=== PATIENT | male | born 1985 | race Two or more races ===

== ENCOUNTER 2022-09-26 17:33 | Inpatient (IN) | payer OTHER ==
[2022-09-26 18:16] VITALS: BMI 24.0
[2022-09-26] MEDS ORDERED: DICYCLOMINE HCL 10 MG CAPSULE PO PRN (19:23)
[2022-09-26] MEDS ORDERED: LORazepam 1 MG TABLET PO PRN (19:23)
[2022-09-26] MEDS ORDERED: BISMUTH SUBSALICYLATE 524 MG/30 ML PO PRN (19:23)
[2022-09-26] MEDS ORDERED: guaiFENesin 600 MG TABLET.ER (FP) PO PRN (19:23)
[2022-09-26] MEDS ORDERED: LOPERAMIDE HCL 2 MG CAPSULE PO PRN (19:23)
[2022-09-26] MEDS ORDERED: NALOXONE HCL (KLOXXADO) 8 MG SPRAY NS PRN (19:23)
[2022-09-26] MEDS ORDERED: NALOXONE HCL 0.4 MG/ML VIAL IM PRN (19:23)
[2022-09-26] MEDS ORDERED: IBUPROFEN 400 MG TABLET (FP) PO PRN (19:23)
[2022-09-26] MEDS ORDERED: IBUPROFEN 600 MG TABLET (FP) PO PRN (19:23)
[2022-09-26] MEDS ORDERED: ONDANSETRON *ODT* 4 MG TABLET SL PRN (19:23)
[2022-09-26] MEDS ORDERED: BENZONATATE 200 MG CAPSULE PO PRN (19:23)
[2022-09-26] MEDS ORDERED: ACETAMINOPHEN 325 MG TABLET (FP) PO PRN (19:23)
[2022-09-26] MEDS ORDERED: BENZOCAINE/MENTHOL (CHLORASEPTIC ) LOZENGE MM PRN (19:23)
[2022-09-26] MEDS ORDERED: MAG HYDROX/AL HYDROX/SIMETH 30 ML UNIT-DOSE CUP PO PRN (19:23)
[2022-09-26] MEDS ORDERED: MAGNESIUM HYDROX 2400MG/30ML ORAL SUSPENSION 30 ML CUP PO PRN (19:23)
[2022-09-26] MEDS ORDERED: POLYETHYLENE GLYCOL (HEALTHYLAX) 3350 17 GM PACKET PO PRN (19:23)
[2022-09-26] MEDS: LORazepam 2 MG TABLET PO SCH (22:23)
[2022-09-26] MEDS: THIAMINE HCL 100 MG TABLET (FP) PO SCH (22:23)
[2022-09-26] MEDS: MELATONIN 5 MG TABLETS PO SCH (22:23)
[2022-09-27] MEDS: AMMONIUM LACTATE 12% LOTION 225 GM BOTTLE TP SCH ×3 (00:19→22:23)
[2022-09-27] MEDS: LORazepam 2 MG TABLET PO SCH ×4 (05:45→22:24)
[2022-09-27 10:14] LABS: BLOOD UREA NITROGEN 9.9 mg/dL (7-18); CALCIUM 8.2 mg/dL (8.5-10.1); HEMOGLOBIN 11.4 GM/dL (11.7-16.9); MCH 31.4 pg (25.7-33.7); MCHC 34.5 g/dl (32.0-35.9); MEAN PLT VOLUME 8.4 fl (7.5-11.1); PLATELET COUNT 87 10^3/uL (134-434); RBC 3.63 M/mm3 (4.00-5.60); RDW 15.3 % (11.9-15.9); WHITE BLOOD COUNT 4.9 K/mm3 (4.0-10.0)
[2022-09-27 10:16] LABS: ALBUMIN 2.7 g/dl (3.4-5.0)
[2022-09-27 10:18] LABS: CREATININE 0.5 mg/dL (0.55-1.3)
[2022-09-27] MEDS: PRENATAL VITAMINS W/ FOLIC ACID TABLET (FP) PO SCH (10:44)
[2022-09-27] MEDS: METHOCARBAMOL 500 MG TABLET PO PRN (10:44)
[2022-09-27] MEDS: hydrOXYzine PAMOATE 25 MG CAPSULE (FP) PO PRN (10:44)
[2022-09-27] MEDS ORDERED: POTASSIUM CHLORIDE ORAL LIQUID 20 MEQ/15 ML PO ONE ×2 (11:29→17:00)
[2022-09-27] MEDS: LACTULOSE 20 GM/30 ML UDC (FOR ORAL USE ONLY) PO SCH ×3 (13:31→22:23)
[2022-09-27] MEDS: THIAMINE HCL 100 MG TABLET (FP) PO SCH (22:24)
[2022-09-27] MEDS: MELATONIN 5 MG TABLETS PO SCH (22:24)
[2022-09-28] MEDS: LORazepam 1 MG TABLET PO SCH ×4 (05:45→22:18)
[2022-09-28] MEDS: LACTULOSE 20 GM/30 ML UDC (FOR ORAL USE ONLY) PO SCH ×4 (10:49→22:18)
[2022-09-28] MEDS: METHOCARBAMOL 500 MG TABLET PO PRN (10:49)
[2022-09-28] MEDS: AMMONIUM LACTATE 12% LOTION 225 GM BOTTLE TP SCH ×2 (10:49→22:18)
[2022-09-28] MEDS: PRENATAL VITAMINS W/ FOLIC ACID TABLET (FP) PO SCH (10:49)
[2022-09-28] MEDS: hydrOXYzine PAMOATE 25 MG CAPSULE (FP) PO PRN (10:49)
[2022-09-28] MEDS: THIAMINE HCL 100 MG TABLET (FP) PO SCH (22:18)
[2022-09-28] MEDS: MELATONIN 5 MG TABLETS PO SCH (22:18)
[2022-09-29] MEDS ORDERED: LORazepam 0.5 MG TABLET PO PRN
[2022-09-29] MEDS: LORazepam 0.5 MG TABLET PO SCH ×4 (05:27→22:08)
[2022-09-29] MEDS: AMMONIUM LACTATE 12% LOTION 225 GM BOTTLE TP SCH ×2 (10:15→22:09)
[2022-09-29] MEDS: LACTULOSE 20 GM/30 ML UDC (FOR ORAL USE ONLY) PO SCH ×4 (10:15→22:09)
[2022-09-29] MEDS: PRENATAL VITAMINS W/ FOLIC ACID TABLET (FP) PO SCH (10:15)
[2022-09-29] MEDS: THIAMINE HCL 100 MG TABLET (FP) PO SCH (22:08)
[2022-09-29] MEDS: MELATONIN 5 MG TABLETS PO SCH (22:08)
[2022-09-30] MEDS ORDERED: LORazepam 0.5 MG TABLET PO ONE (05:00)
[2022-09-30 05:47] VITALS: RESP 18
[2022-09-30 09:37] VITALS: BP 120/77; PULSE 72; TEMP 97.6
[2022-09-30] MEDS: AMMONIUM LACTATE 12% LOTION 225 GM BOTTLE TP SCH (10:30)
[2022-09-30] MEDS: LACTULOSE 20 GM/30 ML UDC (FOR ORAL USE ONLY) PO SCH (10:30)
[2022-09-30] MEDS: PRENATAL VITAMINS W/ FOLIC ACID TABLET (FP) PO SCH (10:31)
== END 2022-09-30 10:20 | disposition home or self-care (01) | DRG 775 ==
LOC: YASAS 17:33 → Y6N 20:27
PROVIDERS: ADMIT Allergy & Immunology; ATTEND Surgery
PROC: HZ2ZZZZ Detoxification Services for Substance Abuse Treatment (ICD-10-PCS; principal; 2022-09-26)
DX: F10.230 Alcohol dependence with withdrawal, uncomplicated (principal); E72.20 Disorder of urea cycle metabolism, unspecified; E87.6 Hypokalemia; K70.30 Alcoholic cirrhosis of liver without ascites; Z87.891 Personal history of nicotine dependence
CPT/HCPCS: 36415; 80053; 82140; 84132; 85027; 86780; C9803-CS; U0003; U0005